=== PATIENT | female | born 1990 | race Caucasian/White ===

== ENCOUNTER 2020-09-22 09:26 | Outpatient (NON) | payer BC, SELFPAY ==
[2020-09-22 19:04] LABS: SARS-CoV-2 RNA PCR Negative
== END 2020-09-22 09:27 ==
DX: Z20.828 Contact with and (suspected) exposure to other viral communicable diseases (principal); J02.9 Acute pharyngitis, unspecified
CPT/HCPCS: 87635; C9803; U0003